=== PATIENT | female | born 1970 | race Caucasian/White ===

== ENCOUNTER 2023-04-14 19:34 | Inpatient (IN) | payer SELFPAY ==
[~2023-04-14] VITALS: Ht 167.6 cm; Wt 59.0 kg
--- NOTE | 2023-04-14 20:08 | NUR ---
Patient placed in room 4A
--- NOTE | 2023-04-14 20:10 | NUR ---
Dr. Manley evaluated patient at bedside. MSE in progress.
[2023-04-14 20:52] LABS: HEMATOCRIT 31.3 % (31.2-41.9); MEAN CORPUSCULAR HEMOGLOBIN 30.2 uug (24.7-32.8); MEAN CORPUSCULAR VOLUME 91.8 fL (75.5-95.3); PLATELET COUNT (AUTO) 199 K/uL (179-408)
--- NOTE | 2023-04-14 20:58 | NUR ---
Ultrasound at bedside
[2023-04-14 21:00] LABS: CARBON DIOXIDE 22 mmol/L (21-32); CHLORIDE 98 mmol/L (98-107); GLUCOSE 97 mg/dL (74-106); POTASSIUM 2.9 mmol/L (3.5-5.1); UREA NITROGEN, BLOOD 7 mg/dL (7-18)
--- NOTE | 2023-04-14 21:12 | NUR ---
Patient signed conset for CT abd/pelvis w/ contrast.
[2023-04-14 21:15] LABS: ALANINE AMINOTRANSFERASE 31 U/L (14-59); ALKALINE PHOSPHATASE 423 U/L (50-136); ASPARTATE AMINOTRANSFERASE 197 U/L (15-37); BILIRUBIN,DIRECT 9.3 mg/dL (0.0-0.2); BILIRUBIN,TOTAL 10.7 mg/dL (0.2-1.0); LIPASE 181 U/L (73-393); TOTAL PROTEIN, SERUM 6.4 g/dL (6.4-8.2)
[2023-04-14] MEDS ORDERED: POTASSIUM BICARBONATE/CIT AC 25 MEQ TABLET.EFF PO ONE (21:15)
--- NOTE | 2023-04-14 21:15 | NUR ---
UA sent to lab
[2023-04-14 21:31] LABS: *BLOOD, URINE 2+ (NEGATIVE); *COLOR,URINE YELLOW (YELLOW); *KETONES,URINE TRACE (NEGATIVE); LEUKOCYTE ESTERASE ,URINE 3+ (NEGATIVE); NITRITE, URINE NEGATIVE (NEGATIVE); UGLUCOSE NEGATIVE (NEGATIVE)
[2023-04-14 21:34] LABS: *BILIRUBIN,URIN 3+ (NEGATIVE); *CLARITY,URINE CLOUDY (CLEAR)
[2023-04-14] MEDS ORDERED: POTASSIUM BICARBONATE/CIT AC 25 MEQ TABLET.EFF ONE (21:34)
[2023-04-14] MEDS ORDERED: IOHEXOL 300MG/ML 100 ML INFUS..BTL ONE (21:49)
[2023-04-14] MEDS ORDERED: SWABABLE VALVE TRANSFER SET EA MC ONE (21:50)
[2023-04-14] MEDS ORDERED: IV NORMAL SALINE 250 ML IV ONE (21:50)
[2023-04-14 22:01] LABS: WBC,URINE 80-100 /HPF (0-3)
[2023-04-14 22:02] LABS: BACTERIA,URINE FEW /HPF (NONE SEEN); SQUAMOUS EPITHELIAL CELL,UR MODERATE /HPF (NONE SEEN)
[2023-04-14 22:04] LABS: BAND % (MANUAL) 4 % (0-10); LYMPHOCYTES % (MANUAL) 8 % (20-40); MONOCYTES % (MANUAL) 2 % (2-10); NEUTROPHILS % (MANUAL) 86 % (42-75)
--- NOTE | 2023-04-14 22:04 | NUR ---
Patient taken to CT via gurraghu accompanied by
[2023-04-14 22:15] LABS: IRON, SERUM 69 ug/dL (50-175)
[2023-04-14 22:27] LABS: FERRITIN 1258 ng/mL (8-252)
--- NOTE | 2023-04-14 22:38 | NUR ---
Patient voided small amount of concentrated urine.
--- NOTE | 2023-04-14 22:45 | NUR ---
Per Dr. Manley, patient requires higher level of care.
--- NOTE | 2023-04-14 22:50 | NUR ---
Called [facility], no answer. Left a voicemail. Waiting for call back.
--- NOTE | 2023-04-14 23:12 | NUR ---
Faxed clinical data to [facility] .
--- NOTE | 2023-04-15 00:05 | NUR ---
Per [facility] transfer data, still reviewing clinical data. Possible transfer in the morning.
--- NOTE | 2023-04-15 00:58 | NUR ---
Called [facility] for panel call. Ramin Larson PACK OPERATOR system administration manager waiting for call back.
--- NOTE | 2023-04-15 00:58 | NUR ---
Called Pantograph Setter Reed MERAZ for bed, was told patient will stay in ER until a MS bed is available.
[2023-04-15] MEDS ORDERED: CHOLECALCIFEROL 1,000 UNIT TABLET PO SCH (01:00)
--- NOTE | 2023-04-15 01:24 | NUR ---
Dr. Manley on panel call with Neo DEGROOT. Pending admisssion.
[2023-04-15] MEDS ORDERED: REMEDY ESSENTIAL ZINC PASTE 113 GM TP PRN (01:45)
[2023-04-15] MEDS ORDERED: MAGNESIUM HYDROXIDE 30 ML LIQUID UDC PO PRN (01:45)
[2023-04-15] MEDS ORDERED: CEFTRIAXONE 1 G in IV DEXTROSE 5% 50 ML IV SCH (01:45)
--- NOTE | 2023-04-15 01:50 | NUR ---
Patient requesting sleeping aid. Dr. Manley notified. Melatonin 3mg PO ordered.
[2023-04-15] MEDS ORDERED: MELATONIN 3 MG TABLET ONE (01:54)
[2023-04-15] MEDS ORDERED: CHOLECALCIFEROL 1,000 UNIT TABLET ONE (01:54)
[2023-04-15] MEDS ORDERED: MAGNESIUM HYDROXIDE 30 ML LIQUID UDC PO ONE (02:00)
[2023-04-15] MEDS ORDERED: MELATONIN 3 MG TABLET PO SCH (02:00)
--- NOTE | 2023-04-15 03:00 | NUR ---
Patient sleeping and resting comfortably in bed. No signs of distress noted.
[2023-04-15] MEDS ORDERED: CEFTRIAXONE /D5W 50ML IVPB **ER PYXIS IV ONE (03:06)
--- NOTE | 2023-04-15 06:01 | NUR ---
Urine sample sent to lab
--- NOTE | 2023-04-15 06:20 | NUR ---
Patient signed transfer consent form.
[2023-04-15 06:47] LABS: HEMATOCRIT 25.3 % (31.2-41.9); MEAN CORPUSCULAR HEMOGLOBIN 31.2 uug (24.7-32.8); MEAN CORPUSCULAR VOLUME 91.2 fL (75.5-95.3); PLATELET COUNT (AUTO) 152 K/uL (179-408)
--- NOTE | 2023-04-15 06:49 | NUR ---
Spoke to [facility] transfer center, per [facility] patient has been accepted by Dr. Rosalina Hidalgo. Currently waiting on financial clearance and back transfer agreement.
[2023-04-15 06:51] LABS: *AMPHETAMINE, URINE NEGATIVE (NEGATIVE); *CANNABINOID, URINE NEGATIVE (NEGATIVE); *COCCAINE, URINE NEGATIVE (NEGATIVE); *PHENCYCLIDINE SCREEN,URINE NEGATIVE (NEGATIVE)
[2023-04-15] MEDS ORDERED: PANTOPRAZOLE SODIUM 40 MG TABLET.DR PO ONE (06:57)
[2023-04-15] MEDS: PANTOPRAZOLE SODIUM 40 MG TABLET.DR PO SCH (06:58)
--- NOTE | 2023-04-15 07:07 | NUR ---
Spoke to [facility] transfer center, per [facility] she's no longer being accepted due to patient being self-pay.
--- NOTE | 2023-04-15 07:17 | NUR ---
Assumed care of Pt at this time. Pt is awake A/O x4 and is not any distress.
[2023-04-15 07:27] LABS: BILIRUBIN,TOTAL 9.6 mg/dL (0.2-1.0); CREATININE 0.8 mg/dL (0.6-1.3); MAGNESIUM 1.9 mg/dL (1.8-2.4); PHOSPHOROUS 2.1 mg/dL (2.5-4.9); POTASSIUM 3.6 mmol/L (3.5-5.1); TOTAL PROTEIN, SERUM 5.5 g/dL (6.4-8.2)
[2023-04-15 08:08] LABS: ACETAMINOPHEN < 10.0 ug/mL (10-30)
--- NOTE | 2023-04-15 09:05 | NUR ---
Pt cc of nerve pain/tingling of Upper/lower ext, C Aretha notified, awaiting call back.
[2023-04-15] MEDS ORDERED: LORAZEPAM 2 MG/1 ML VIAL ONE (10:44)
[2023-04-15 10:46] LABS: BAND % (MANUAL) 4 % (0-10); LYMPHOCYTES % (MANUAL) 3 % (20-40); MONOCYTES % (MANUAL) 4 % (2-10); NEUTROPHILS % (MANUAL) 89 % (42-75)
[2023-04-15] MEDS: LORAZEPAM 2 MG/1 ML VIAL IV PRN (10:50)
--- NOTE | 2023-04-15 12:20 | NUR ---
Pt ate lunch tray w/ moderate appetite. Pt states decreased tinglin/pain of Ext.
--- NOTE | 2023-04-15 13:35 | NUR ---
Patient is resting comfortably in bed with eyes closed, NAD noted.
[2023-04-15] MEDS ORDERED: NEUTRA PHOS PACKET PO ONE (17:00)
--- NOTE | 2023-04-15 18:45 | NUR ---
Room 229B assigned by nursing supervisor feed mill.
--- NOTE | 2023-04-15 19:15 | NUR ---
Received report from Devorah MERAZ.
--- NOTE | 2023-04-15 20:01 | NUR ---
called 3rd floor for bed, spoke with Sonia MERAZ. Patient assigned to M/S room 329A
--- NOTE | 2023-04-15 20:56 | NUR ---
Called third floor and gave report to Sonia MERAZ.
--- NOTE | 2023-04-15 21:56 | NUR ---
Transferred patient upstairs, KT vega made aware of patient's arrival.
--- NOTE | 2023-04-15 22:00 | NUR ---
Received patient from ER via gurney, alert and oriented x4, dx: Jaundice. In no acute distress. IV access to LAC intact and patent. Abdomen is soft and slightly distended. Routine admission care rendered, oriented to room/TV/BR and call light. NPO except meds. Care plan initiated. Needs attended.
[2023-04-15] MEDS ORDERED: CEFEPIME HCL 1 G VIAL ONE (22:12)
[2023-04-15 22:14] VITALS: BP 121/74
[2023-04-15] MEDS: CEFEPIME HCL 1 G in IV DEXTROSE 5% 50 ML IV SCH (22:36)
[2023-04-15] MEDS ORDERED: IV DEXTROSE 5%-0.9%NS+20MeqKCL 1,000 ML IV ONE (22:58)
[2023-04-15] MEDS: VANCOMYCIN IV 1,250 MG in IV DEXTROSE 5% 250 ML IV ONE ×2 (23:06→23:48)
[2023-04-15] MEDS: POTASSIUM CHLORIDE 20 MEQ in IV D5/ 0.9% NACL 1,000 ML IV PRN (23:08)
[2023-04-16] MEDS ORDERED: VANCOMYCIN HCL 500 MG VIAL ONE (02:12)
[2023-04-16] MEDS ORDERED: CEFTRIAXONE 1 G in IV DEXTROSE 5% 50 ML IV SCH (03:00)
[2023-04-16 04:39] VITALS: BP 126/79
[2023-04-16] MEDS: CEFEPIME HCL 1 G in IV DEXTROSE 5% 50 ML IV SCH ×3 (06:01→23:21)
[2023-04-16] MEDS: PANTOPRAZOLE SODIUM 40 MG TABLET.DR PO SCH (06:19)
[2023-04-16 07:46] LABS: BILIRUBIN,TOTAL 10.1 mg/dL (0.2-1.0); CREATININE 0.8 mg/dL (0.6-1.3); MAGNESIUM 1.7 mg/dL (1.8-2.4); PHOSPHOROUS 2.8 mg/dL (2.5-4.9); POTASSIUM 3.6 mmol/L (3.5-5.1); TOTAL PROTEIN, SERUM 5.6 g/dL (6.4-8.2)
[2023-04-16 08:07] LABS: HEMATOCRIT 29.9 % (31.2-41.9); MEAN CORPUSCULAR HEMOGLOBIN 30.5 uug (24.7-32.8); MEAN CORPUSCULAR VOLUME 95.4 fL (75.5-95.3); PLATELET COUNT (AUTO) 64 K/uL (179-408)
[2023-04-16] MEDS: MAGNESIUM SULFATE/D5W 100 ML IV SCH ×2 (09:50→10:15)
[2023-04-16 11:47] VITALS: BP 119/77
[2023-04-16 12:07] LABS: HEPATITIS A AB, IgM Negative (Negative)
--- NOTE | 2023-04-16 12:40 | NUR ---
WOUND CARE CONSULT: PT PRESENTS WITH LEFT GREAT TOENAIL LOOSENED WITH TENDERNESS AND LONG TOENAILS, PRESENT ON ADMISSION. DR EMERSON CALLED FOR DPM CONSULT. IN AGREEMENT WITH PLAN OF CARE.
[2023-04-16] MEDS: VANCOMYCIN IV 1,000 MG in IV DEXTROSE 5% 250 ML IV SCH (14:13)
--- NOTE | 2023-04-16 15:07 | NUR ---
AM NOTE: RECEIVED REPORT FROM AM NURSE NOLA PATIENT IS ALERT AND ORIENTED X4 SKIN IS JAUNDICE AND CHECKED LT BIG TOE WILL DRESS THE AREA. DR MENDOZA ORDERED FOR PATIENT CLEAR LIQUID DIET CHECKED PATIENT SHE IS SLEEPING NO SIGNS OF DISTRESS NOTED. MEDICATION GIVEN ORDERED NO SIGNS OF ADVERSE REACTION NOTED. FROM MEDICATION WILL CONTINUE TO MONITOR FOR FALLS AND SAFETY.
[2023-04-16] MEDS: MORPHINE SULFATE 2 MG/1 ML DISP.SYRIN IV PRN (15:52)
[2023-04-16] MEDS: POTASSIUM CHLORIDE 20 MEQ in IV D5/ 0.9% NACL 1,000 ML IV PRN (15:53)
[2023-04-16 16:00] VITALS: BP 138/90
[2023-04-16] MEDS: METRONIDAZOLE 500 MG/NS 100ML 500 MG in PREMIXED 1 EACH IV SCH ×2 (17:30→22:00)
[2023-04-16 18:07] LABS: NEUTROPHILS % (MANUAL) 90 % (42-75)
[2023-04-16 18:08] LABS: BASOPHILS % (MANUAL) 0 % (0-2); EOSINOPHILS % (MANUAL) 0 % (0-8); LYMPHOCYTES % (MANUAL) 7 % (20-40); MONOCYTES % (MANUAL) 3 % (2-10)
[2023-04-16 21:41] VITALS: BP 142/80
[2023-04-17 03:43] VITALS: BP 124/74
[2023-04-17] MEDS: CEFEPIME HCL 1 G in IV DEXTROSE 5% 50 ML IV SCH ×3 (05:16→22:24)
[2023-04-17] MEDS: METRONIDAZOLE 500 MG/NS 100ML 500 MG in PREMIXED 1 EACH IV SCH ×3 (05:44→22:43)
[2023-04-17] MEDS: PANTOPRAZOLE SODIUM 40 MG TABLET.DR PO SCH (06:10)
[2023-04-17] MEDS: MORPHINE SULFATE 2 MG/1 ML DISP.SYRIN IV PRN ×2 (06:11→20:41)
[2023-04-17] MEDS: VANCOMYCIN IV 1,000 MG in IV DEXTROSE 5% 250 ML IV SCH ×2 (07:03→23:55)
--- NOTE | 2023-04-17 07:30 | NUR ---
RECEIVED REPORT FROM NIGHT NURSES: 1) Patient received AOx4, no sign of distress, discomfort or pain observed. 2) Awaiting ID assessment. 3) Will treat patient accordingly.
--- NOTE | 2023-04-17 07:30 | NUR ---
NIGHT NURSE REPORT: 1) Received A0 x4 - asleep comfortably 2) No sign of distress, sob, pain or discomfort observed. 3) Will continue to assess, treat, and evaluate care accordingly.
--- NOTE | 2023-04-17 07:33 | NUR ---
Pt received in bed IV Infiltrated. New IV started on left wrist Pt on multiple antibiotics WBC remain elevated. Pt medicated with Morphine Sulfate IVP. Tolerate PO intake fine no n/v. Pt undrerstood to call for help if needed. Endorse care to incoming RN
[2023-04-17 08:22] LABS: HEMATOCRIT 26.3 % (31.2-41.9); MEAN CORPUSCULAR HEMOGLOBIN 30.9 uug (24.7-32.8); MEAN CORPUSCULAR VOLUME 93.3 fL (75.5-95.3); PLATELET COUNT (AUTO) 166 K/uL (179-408)
--- NOTE | 2023-04-17 09:00 | NUR ---
LAB - HIB INFLUENZA 1) Called MD/VOICE COACH left a message regarding blood draw HIB - Influenza - what test does the MD/VOICE COACH wants. 2) Awaiting response back.
[2023-04-17 09:17] LABS: BILIRUBIN,DIRECT 8.5 mg/dL (0.0-0.2); BILIRUBIN,TOTAL 10.2 mg/dL (0.2-1.0); CREATININE 0.8 mg/dL (0.6-1.3); MAGNESIUM 2.1 mg/dL (1.8-2.4); PHOSPHOROUS 2.7 mg/dL (2.5-4.9); POTASSIUM 3.4 mmol/L (3.5-5.1); TOTAL PROTEIN, SERUM 5.2 g/dL (6.4-8.2)
--- NOTE | 2023-04-17 09:48 | NUR ---
LAB WORK - TAKEN AT THE TIME OF THIS REPORT.
--- NOTE | 2023-04-17 09:57 | NUR ---
CRITICAL LAB: - left a message for MD/FURNITURE INSTALLER WBC 34.3 was trending down 04/16/2023 was 30.2
--- NOTE | 2023-04-17 11:02 | NUR ---
CARE ADMINISTERED REQUIRED.
[2023-04-17 11:35] VITALS: BP 120/77
--- NOTE | 2023-04-17 13:45 | NUR ---
NO CHANGE IN CONDITION - REMAINS CLINICALLY STABLE AND ASLEEP MOST OF THE TIME
[2023-04-17 16:00] VITALS: BP 125/72
[2023-04-17 16:54] LABS: NEUTROPHILS % (MANUAL) 61 % (42-75)
[2023-04-17 16:55] LABS: BAND % (MANUAL) 19 % (0-10); BASOPHILS % (MANUAL) 0 % (0-2); BLASTS, MANUAL % 0 % (0-0); EOSINOPHILS % (MANUAL) 2 % (0-8); LYMPHOCYTES % (MANUAL) 11 % (20-40); METAMYELOCYTES % 0 % (0-1); MONOCYTES % (MANUAL) 6 % (2-10); MYELOCYTES % 0 % (0-0); PROMYELOCYTES % 0 %; REACTIVE LYMPHOCYTES 0 % (0-0)
[2023-04-17] MEDS: POTASSIUM CHLORIDE 20 MEQ in IV D5/ 0.9% NACL 1,000 ML IV PRN (17:08)
--- NOTE | 2023-04-17 19:02 | NUR ---
1) WILL ENDORSED CARE TO NIGHT STAFF ACCORDINGLY. 2) NO CHANGE IN CONDITION, PATIENT CLINICALLY STABLE AT THE TIME OF THIS REPORT
[2023-04-17 21:00] VITALS: BP 124/82
[2023-04-18] MEDS: LORAZEPAM 2 MG/1 ML VIAL IV PRN (00:49)
[2023-04-18] MEDS: METRONIDAZOLE 500 MG/NS 100ML 500 MG in PREMIXED 1 EACH IV SCH ×3 (05:05→21:21)
[2023-04-18] MEDS: CEFEPIME HCL 1 G in IV DEXTROSE 5% 50 ML IV SCH ×3 (05:42→21:21)
[2023-04-18] MEDS: PANTOPRAZOLE SODIUM 40 MG TABLET.DR PO SCH (06:13)
[2023-04-18 06:36] VITALS: BP 134/86
[2023-04-18 07:00] LABS: HEMATOCRIT 25.6 % (31.2-41.9); MEAN CORPUSCULAR VOLUME 94.5 fL (75.5-95.3); PLATELET COUNT (AUTO) 184 K/uL (179-408)
[2023-04-18 07:20] LABS: MAGNESIUM 1.9 mg/dL (1.8-2.4); PHOSPHOROUS 2.3 mg/dL (2.5-4.9); POTASSIUM 3.6 mmol/L (3.5-5.1)
--- NOTE | 2023-04-18 07:30 | NUR ---
REPORT FROM NIGHT STAFF: 1) Patient received, awake, alert and no sign of SOB, or distress. 2) Will continue to assess, plan, implement, and evaluate care accordingly.
[2023-04-18] MEDS: MORPHINE SULFATE 2 MG/1 ML DISP.SYRIN IV PRN ×2 (08:21→15:50)
[2023-04-18] MEDS: POTASSIUM CHLORIDE 20 MEQ in IV D5/ 0.9% NACL 1,000 ML IV PRN (08:22)
[2023-04-18 11:41] VITALS: BP 135/88
--- NOTE | 2023-04-18 12:52 | NUR ---
BLOOD CULTURE RESULTS: 1) MD informed 2) No new orders because patient has been seen by ID team already.
[2023-04-18 15:12] VITALS: BP_SYST 117; BP_SYST 139; BP_DIAS 48; BP_DIAS 91
[2023-04-18] MEDS: VANCOMYCIN IV 1,000 MG in IV DEXTROSE 5% 250 ML IV SCH (15:13)
--- NOTE | 2023-04-18 15:14 | NUR ---
WOUND DRESSIN) Took off dressing to left big toe- no open wound. 2) Patient claims to have knocked the toe on the door. 3) Non adherent dressing applied for protection - no drainage. 4) No sign of infection or inflammation observed.
--- NOTE | 2023-04-18 15:15 | NUR ---
SEEN BY ID TEAM: 1) Patient may benefit from GI input. 2) Sent a message to MD regarding this info. 3) Await MD's response.
[2023-04-18] MEDS: ONDANSETRON 4 MG/2 ML VIAL IV PRN (15:29)
--- NOTE | 2023-04-18 15:52 | NUR ---
NUCLEAR MEDICINE GALL BLADDER STUDY: 1) Lyndsay [phone] called and plan is: (i) NPO from time of report (ii) No Morphine (iii) Consent for Surgery & Special procedures 2) NPO noticed placed on door - GAS PLANT SPECIALIST informed
[2023-04-18] MEDS ORDERED: NEUTRA PHOS PACKET PO ONE (16:00)
--- NOTE | 2023-04-18 18:20 | NUR ---
1) CONSENT SIGNED AND IN PATIENT'S FOLDER 2) Will endorse care to night staff accordingly
--- NOTE | 2023-04-18 21:37 | NUR ---
Patient scheduled for NM but IV infiltrated, currently waiting for PICC line nurse to place a midline. NM scheduled now to tomorrow morning. Patient requesting water, I will give water but she will be NPO after midnight. Patient is anxious and nervous about her current condition, comfort measures incorporated and calm reassurance given.
[2023-04-19 00:18] VITALS: BP 128/75
--- NOTE | 2023-04-19 02:36 | NUR ---
Midline in RUE placed by camacho Dupree Carol NM Tech informed so she could order the Isotopes in preparation for the procedure today. NPO being maintained.
[2023-04-19 05:12] VITALS: BP 128/75
[2023-04-19] MEDS: PANTOPRAZOLE SODIUM 40 MG TABLET.DR PO SCH (05:22)
[2023-04-19] MEDS: CEFEPIME HCL 1 G in IV DEXTROSE 5% 50 ML IV SCH ×2 (05:31→14:42)
[2023-04-19] MEDS: METRONIDAZOLE 500 MG/NS 100ML 500 MG in PREMIXED 1 EACH IV SCH ×2 (05:31→14:42)
[2023-04-19] MEDS: POTASSIUM CHLORIDE 20 MEQ in IV D5/ 0.9% NACL 1,000 ML IV PRN (06:29)
--- NOTE | 2023-04-19 07:30 | NUR ---
NIGHT NURSE REPORT: 1) Received patient AOx4, lying in be watching tv. 2) No sign of distress, pain, discomfort or SOB observed. 3) Patient on RA. 4) Due Nuclear Medicine Gall bladder Study this morning as iv access was an issue yesterday 5) Will continue to monitor, assess, plan, and implement care accordingly.
--- NOTE | 2023-04-19 08:00 | NUR ---
NUCLEAR MEDICINE GALL BLADDER STUDY: 1) Patient left for the study. 2) Patient was clinically stable, no sign of distress, SOB, pain observed on transfer.
[2023-04-19 09:12] LABS: POTASSIUM 3.5 mmol/L (3.5-5.1)
--- NOTE | 2023-04-19 11:15 | NUR ---
RETURN FROM NUCLEAR MEDICINE - CLINICALLY STABLE
[2023-04-19 12:02] VITALS: BP 122/80
--- NOTE | 2023-04-19 12:37 | NUR ---
EATING & DRINKING - OFFERED LIQUID DIET ON RETURN
--- NOTE | 2023-04-19 14:18 | NUR ---
SAFETY: C/o of itchiness all over - MD informed
[2023-04-19] MEDS ORDERED: diphenhydrAMINE 25 MG/10 ML UDC PO PRN (14:30)
[2023-04-19] MEDS: diphenhydrAMINE 25 MG CAP PO PRN ×2 (14:50→22:53)
--- NOTE | 2023-04-19 14:52 | NUR ---
SAFETY: 1) MD prescribed Benadryl Capsule PO. 2) Administered and awaiting effect.
[2023-04-19 15:06] VITALS: BP 116/78
[2023-04-19] MEDS ORDERED: SODIUM PHOSPHATE MM 15 MMOL in IV NORMAL SALINE 250 ML IV ONE (15:30)
--- NOTE | 2023-04-19 15:55 | NUR ---
CHECKED ON PATIENT AND CLINICALLY STABLE AND ASLEEP
[2023-04-19] MEDS: MEROPENEM 1 G in IV NORMAL SALINE 100 ML IV SCH (21:00)
[2023-04-19] MEDS: ACYCLOVIR IV 500 MG in IV DEXTROSE 5% 100 ML IV SCH (22:47)
[2023-04-20] MEDS: MORPHINE SULFATE 2 MG/1 ML DISP.SYRIN IV PRN ×3 (02:54→21:18)
--- NOTE | 2023-04-20 03:34 | NUR ---
Received the patient at start of shift resting in bed, no acute distress noted, breathing easy unlabored on room air. No acute distress noted. Currently patient able to give stool specimen, which has been sent to the lab, she also c/o abdominal pain she was given Morphine 1mg IV, which was effective.
[2023-04-20] MEDS: ACYCLOVIR IV 500 MG in IV DEXTROSE 5% 100 ML IV SCH ×3 (04:34→21:16)
[2023-04-20] MEDS: MEROPENEM 1 G in IV NORMAL SALINE 100 ML IV SCH ×3 (04:34→21:16)
[2023-04-20] MEDS: PANTOPRAZOLE SODIUM 40 MG TABLET.DR PO SCH (05:53)
[2023-04-20 05:56] LABS: HEMATOCRIT 27.6 % (31.2-41.9); MEAN CORPUSCULAR HEMOGLOBIN 31.5 uug (24.7-32.8); MEAN CORPUSCULAR VOLUME 95.9 fL (75.5-95.3); PLATELET COUNT (AUTO) 215 K/uL (179-408)
[2023-04-20 06:07] LABS: CREATININE 0.9 mg/dL (0.6-1.3); POTASSIUM 3.5 mmol/L (3.5-5.1)
[2023-04-20 06:41] LABS: BILIRUBIN,DIRECT 8.7 mg/dL (0.0-0.2); BILIRUBIN,TOTAL 10.1 mg/dL (0.2-1.0); TOTAL PROTEIN, SERUM 5.1 g/dL (6.4-8.2)
[2023-04-20 06:59] LABS: *RHEUMATOID FACTOR SCREEN NEGATIVE (NEGATIVE)
[2023-04-20 07:03] LABS: THYROID STIMULATING HORMONE 11.099 mIU/mL (0.358-3.740)
[2023-04-20 07:20] VITALS: BP 138/83
--- NOTE | 2023-04-20 07:30 | NUR ---
NIGHT NURSE REPORT: 1) Pt received lying in bed comfortably. 2) No sign of SOB, labored breathing, or cyanosis - on RA 3) No sign of pain, distress observed. 4) Will continue to asses, plan, and implement care accordingly
--- NOTE | 2023-04-20 08:30 | NUR ---
[facility] THIS MORNIN) Patient to be NPO from now - no breakfast. 2) Consent will be sign by the department technicians after explaining the procedure 3) Patient informed - water taken away
--- NOTE | 2023-04-20 09:43 | NUR ---
PT EVALUATION: 1) RN assisted PT to evaluate - patient did not want to come out of bed or mobilize - asking for it to be done tomorrow. 2) Patient complaining that she has numbness in her feet and pain in her arm pits making it difficult to assist. Stood up for less than 3 minutes and asked for bed smith. 3) Patient was put back to bed and bed smith provided - passed dark yellow urine.
--- NOTE | 2023-04-20 09:48 | NUR ---
EATING & DRINKING: FIRE ENGINEER ordered advance diet as tolerated.
--- NOTE | 2023-04-20 09:49 | NUR ---
PAIN MANAGEMENT - OFFERED PAIN MEDS - REFUSED.
--- NOTE | 2023-04-20 11:02 | NUR ---
LEFT FOR [facility] - AT [facility] - CLINICALLY STABLE
[2023-04-20 11:28] LABS: BAND % (MANUAL) 4 % (0-10); BASOPHILS % (MANUAL) 0 % (0-2); BLASTS, MANUAL % 0 % (0-0); EOSINOPHILS % (MANUAL) 0 % (0-8); LYMPHOCYTES % (MANUAL) 12 % (20-40); METAMYELOCYTES % 0 % (0-1); MONOCYTES % (MANUAL) 8 % (2-10); MYELOCYTES % 0 % (0-0); NEUTROPHILS % (MANUAL) 74 % (42-75); PROMYELOCYTES % 0 %; REACTIVE LYMPHOCYTES 2 % (0-0)
--- NOTE | 2023-04-20 13:45 | NUR ---
RETURNED FROM [facility] ([facility] [place] [place]) - CLINICALLY STABLE.
--- NOTE | 2023-04-20 14:07 | NUR ---
1) PAIN MANAGEMENT - PAIN MED ADMINISTERED PRESCRIBED AND AWAIT EFFECT. 2) IV ATB ADMINISTERED PRESCRIBED - A LITTLE BEHIND BECAUSE OF BEING OFF THE UNIT
--- NOTE | 2023-04-20 18:56 | NUR ---
LARRIMAN HELPER ENDORSEMENT - WILL ENDORSE CARE TO NIGHT STAFF ACCORDINGLY.
[2023-04-20 20:00] VITALS: BP 125/68
[2023-04-21] MEDS: MEROPENEM 1 G in IV NORMAL SALINE 100 ML IV SCH ×3 (05:14→21:00)
[2023-04-21 05:41] VITALS: BP 149/98
[2023-04-21] MEDS: ACYCLOVIR IV 500 MG in IV DEXTROSE 5% 100 ML IV SCH ×3 (06:27→22:00)
[2023-04-21] MEDS: PANTOPRAZOLE SODIUM 40 MG TABLET.DR PO SCH (06:27)
[2023-04-21 07:06] LABS: *IMMUNOGLOBULIN G, SERUM 1404 mg/dL (586-1602); IMMUNOGLOBULIN M, SERUM 88 mg/dL (26-217)
--- NOTE | 2023-04-21 10:00 | NUR ---
RCVD PT IN BED RESTING. AOOX4. NO SOB OR ANY DISTRESS. IV MIDLINE RUNNING 80ML/HR OF D5 WITH K 20MEQ. STILL URINATING CLOUDY-DARK URINE. PT COMPLIANT WITH CLEAR LIQUIDS DIET.
[2023-04-21 11:36] VITALS: BP 139/85
[2023-04-21 16:08] VITALS: BP 134/88
--- NOTE | 2023-04-21 17:39 | NUR ---
PT V/S WNL. IV MIDLINE INTACT AND PATENT RUNNING 80CC/HR OF D5 KCL 20 MEQ. URINATING CLOUDY-DARK URINE. SEEN BY DARON DEGROOT. LAB WORKS ORDERED. PT COMPLIANT WITH CLEAR LIQUIDS DIET.
[2023-04-21] MEDS: POTASSIUM CHLORIDE 20 MEQ in IV D5/ 0.9% NACL 1,000 ML IV PRN (20:34)
[2023-04-22] MEDS: LORAZEPAM 2 MG/1 ML VIAL IV PRN ×3 (00:46→22:11)
[2023-04-22 02:47] VITALS: BP 152/99
[2023-04-22] MEDS: MEROPENEM 1 G in IV NORMAL SALINE 100 ML IV SCH ×3 (05:00→20:11)
[2023-04-22 05:03] VITALS: BP 129/86
[2023-04-22] MEDS: ACYCLOVIR IV 500 MG in IV DEXTROSE 5% 100 ML IV SCH ×3 (06:27→21:52)
[2023-04-22] MEDS: PANTOPRAZOLE SODIUM 40 MG TABLET.DR PO SCH (06:27)
--- NOTE | 2023-04-22 06:59 | NUR ---
Patient extremely anxious during the night, despite receiving ativan. She continuously request morphine, demanding and constantly pushing call light the entire night, she slept a total of 2 hours but cat napping. Patient's daughter and request to speak with doctor, she will in am form Margaret.
[2023-04-22 07:14] LABS: MEAN CORPUSCULAR VOLUME 99.4 fL (75.5-95.3)
[2023-04-22 07:41] LABS: CREATININE 1.1 mg/dL (0.6-1.3); MAGNESIUM 1.9 mg/dL (1.8-2.4); PHOSPHOROUS 1.9 mg/dL (2.5-4.9); POTASSIUM 3.7 mmol/L (3.5-5.1)
[2023-04-22 08:04] LABS: HEMATOCRIT 29.7 % (31.2-41.9); MEAN CORPUSCULAR HEMOGLOBIN 31.3 uug (24.7-32.8); PLATELET COUNT (AUTO) 276 K/uL (179-408)
[2023-04-22 10:06] LABS: *ANTI-SCLERODERMA-70 AB <0.2 AI (0.0-0.9); *SJOGREN'S ANTI-SS-A <0.2 AI (0.0-0.9); *SJOGREN'S ANTI-SS-B <0.2 AI (0.0-0.9); *SMITH ANTIBODIES <0.2 AI (0.0-0.9); ANTI-DNA(DS) AB, QN <1 IU/mL (0-9)
[2023-04-22 10:50] LABS: LYMPHOCYTES % (MANUAL) 3 % (20-40); MONOCYTES % (MANUAL) 1 % (2-10); NEUTROPHILS % (MANUAL) 96 % (42-75)
[2023-04-22] MEDS: MORPHINE SULFATE 2 MG/1 ML DISP.SYRIN IV PRN ×2 (10:53→20:11)
[2023-04-22 11:44] VITALS: BP 148/97
[2023-04-22 12:06] LABS: A/G RATIO 0.5 (0.7-1.7); ALBUMIN 1.5 g/dL (2.9-4.4); ALPHA-1-GLOBULIN 0.3 g/dL (0.0-0.4); ALPHA-2-GLOBULIN 0.6 g/dL (0.4-1.0); BETA GLOBULIN 1.1 g/dL (0.7-1.3); GAMMA GLOBULIN 1.2 g/dL (0.4-1.8); GLOBULIN, TOTAL 3.2 g/dL (2.2-3.9); M-SPIKE Not Observed g/dL (Not Observed)
[2023-04-22 16:37] VITALS: BP 151/95
[2023-04-22] MEDS ORDERED: NEUTRA PHOS PACKET PO ONE ×2 (17:30→22:00)
--- NOTE | 2023-04-22 20:38 | NUR ---
Pt AOx2-3, presenting with intermittent confusion. She refused PT today. Tolerating CLD. Hgb 34.2 today, trending down, MD aware. Flow cytometry ordered by Dr. Mccain. Per Dr Steele, the lab was never collected. Informed the lab and they could not see the order on their end. Lab test was reordered and made aware that it is a send out lab. New medication, Neutra Phos, ordered but unable to give during shift d/t needing to help one pt with blood transfusion and needing to help another patient with stool incontinence and IV occlusion. Endorsed to shift mechanic RN to give med.
[2023-04-22 21:06] LABS: VARICELLA ZOSTER IgG 942 index (Immune >165)
[2023-04-22 21:06] LABS: *EBV AB VCA IGG 60.6 U/mL (0.0-17.9); *EBV AB VCA IGM <36.0 U/mL (0.0-35.9)
--- NOTE | 2023-04-22 21:30 | NUR ---
AOX1. Neutra Phos given as endorsed by day shift RN. At 1999, Pt complained of pain on abdomen. Morphine given as ordered. At 0, pt was anxious. Ativan given as ordered. Slept comfortably through out the night. All needs attended. Call light within reach. Safety precaution maintained. Addendum: 04/23/23 at 0449 by HARMONY HENDERSON RN Incorrect time. Documentation for 04/23/23 3489
[2023-04-22] MEDS: POTASSIUM CHLORIDE 20 MEQ in IV D5/ 0.9% NACL 1,000 ML IV PRN (22:11)
[2023-04-22] MEDS ORDERED: IV DEXTROSE 5%-0.9%NS+20MeqKCL 1,000 ML IV ONE (23:03)
[2023-04-23 02:06] LABS: CMV, IgG >10.00 U/mL (0.00-0.59)
[2023-04-23 04:00] VITALS: BP 156/82
[2023-04-23] MEDS: MEROPENEM 1 G in IV NORMAL SALINE 100 ML IV SCH ×3 (04:01→21:55)
[2023-04-23] MEDS: ACYCLOVIR IV 500 MG in IV DEXTROSE 5% 100 ML IV SCH ×3 (05:03→21:57)
[2023-04-23] MEDS: LORAZEPAM 2 MG/1 ML VIAL IV PRN ×2 (05:38→23:17)
[2023-04-23] MEDS: PANTOPRAZOLE SODIUM 40 MG TABLET.DR PO SCH (06:07)
[2023-04-23 07:01] LABS: HEMATOCRIT 27.5 % (31.2-41.9); MEAN CORPUSCULAR HEMOGLOBIN 31.8 uug (24.7-32.8); MEAN CORPUSCULAR VOLUME 99.2 fL (75.5-95.3); PLATELET COUNT (AUTO) 255 K/uL (179-408)
[2023-04-23 07:10] LABS: MAGNESIUM 1.8 mg/dL (1.8-2.4); POTASSIUM 4.3 mmol/L (3.5-5.1)
[2023-04-23 08:06] LABS: IMMUNOGLOBULIN M, SERUM 88 mg/dL (26-217)
[2023-04-23 11:48] VITALS: BP 153/102
[2023-04-23] MEDS: POTASSIUM CHLORIDE 20 MEQ in IV D5/ 0.9% NACL 1,000 ML IV PRN (14:08)
[2023-04-23 15:45] VITALS: BP 142/100
[2023-04-23] MEDS ORDERED: NEUTRA PHOS PACKET PO ONE (16:00)
--- NOTE | 2023-04-23 17:00 | NUR ---
Patient has elevated blood pressure of 153/102 recheck 142/100 then 197/95 with heart rates as follow: 112, [address] Ribera notified with order for propranolol 10mg PO [id number].
[2023-04-23] MEDS: PROPRANOLOL HCL 10 MG TABLET PO SCH ×2 (18:39→21:00)
[2023-04-23 20:00] VITALS: BP 147/99
[2023-04-23] MEDS: MORPHINE SULFATE 2 MG/1 ML DISP.SYRIN IV PRN (23:17)
[2023-04-24] MEDS: POTASSIUM CHLORIDE 20 MEQ in IV D5/ 0.9% NACL 1,000 ML IV PRN ×2 (03:12→17:13)
[2023-04-24 04:00] VITALS: BP 141/80
[2023-04-24] MEDS: MEROPENEM 1 G in IV NORMAL SALINE 100 ML IV SCH ×3 (05:04→20:24)
[2023-04-24] MEDS: ACYCLOVIR IV 500 MG in IV DEXTROSE 5% 100 ML IV SCH ×3 (05:15→21:27)
[2023-04-24] MEDS: PANTOPRAZOLE SODIUM 40 MG TABLET.DR PO SCH (06:12)
[2023-04-24] MEDS: MORPHINE SULFATE 2 MG/1 ML DISP.SYRIN IV PRN ×2 (06:45→22:24)
[2023-04-24 07:31] LABS: MEAN CORPUSCULAR HEMOGLOBIN 32.7 uug (24.7-32.8); MEAN CORPUSCULAR VOLUME 101.3 fL (75.5-95.3); PLATELET COUNT (AUTO) 277 K/uL (179-408)
[2023-04-24] MEDS: PROPRANOLOL HCL 10 MG TABLET PO SCH ×2 (08:27→20:25)
[2023-04-24 10:43] LABS: BILIRUBIN,DIRECT 5.8 mg/dL (0.0-0.2); BILIRUBIN,TOTAL 6.7 mg/dL (0.2-1.0); CREATININE 0.8 mg/dL (0.6-1.3); MAGNESIUM 1.9 mg/dL (1.8-2.4); PHOSPHOROUS 2.8 mg/dL (2.5-4.9); TOTAL PROTEIN, SERUM 5.8 g/dL (6.4-8.2)
--- NOTE | 2023-04-24 11:31 | NUR ---
Received a call at 1110 from lab (Darren) and reported critical lab value of Albumin 1.0 Dr. brooks was notified.
[2023-04-24 12:00] VITALS: BP 142/91
[2023-04-24] MEDS: PROTEIN SUPPLEMENT (PROSTAT) 30 ML LIQUID PO SCH ×2 (12:05→17:17)
[2023-04-24 15:54] VITALS: BP 149/100
--- NOTE | 2023-04-24 16:17 | NUR ---
Paracentesis done and 1460 L fluid removed. Removed Fluid dropped off at the Lab. Pt. has been stable. Will keep monitoring the patient.
[2023-04-24] MEDS: LORAZEPAM 2 MG/1 ML VIAL IV PRN ×2 (16:18→22:24)
--- NOTE | 2023-04-24 17:37 | NUR ---
Pt. has been stable during the shift. Kept the pt. clean and dry. No c/o pain. Call light within reach. Repositioned every 2 hours and as needed. Compliance with the care given. Bedbound. Able to make the need known. Will keep monitoring the patient.
--- NOTE | 2023-04-24 18:48 | NUR ---
Urine sample collected and dropped off at the lab.
[2023-04-24 19:17] LABS: *BLOOD, URINE NEGATIVE (NEGATIVE); *CLARITY,URINE CLEAR (CLEAR); *KETONES,URINE TRACE (NEGATIVE); *UROBILINOGEN,URINE 0.2 E.U./dl (NORMAL); LEUKOCYTE ESTERASE ,URINE NEGATIVE (NEGATIVE); NITRITE, URINE NEGATIVE (NEGATIVE); UGLUCOSE NEGATIVE (NEGATIVE)
[2023-04-24 19:25] LABS: *BILIRUBIN,URIN 3+ (NEGATIVE)
[2023-04-24 19:26] LABS: *COLOR,URINE DARK YELLOW (YELLOW)
[2023-04-24 22:36] VITALS: BP 159/106
[2023-04-25] VITALS (10 sets, daily range): BP systolic 82–134; BP diastolic 44–84
[2023-04-25] MEDS: MEROPENEM 1 G in IV NORMAL SALINE 100 ML IV SCH ×3 (04:39→20:55)
[2023-04-25] MEDS: ACYCLOVIR IV 500 MG in IV DEXTROSE 5% 100 ML IV SCH ×3 (05:42→22:05)
[2023-04-25] MEDS: POTASSIUM CHLORIDE 20 MEQ in IV D5/ 0.9% NACL 1,000 ML IV PRN (06:05)
[2023-04-25] MEDS: PANTOPRAZOLE SODIUM 40 MG TABLET.DR PO SCH (06:11)
[2023-04-25 07:03] LABS: HEMATOCRIT 33.7 % (31.2-41.9); MEAN CORPUSCULAR HEMOGLOBIN 32.3 uug (24.7-32.8); PLATELET COUNT (AUTO) 316 K/uL (179-408)
[2023-04-25 07:25] LABS: BILIRUBIN,DIRECT 4.6 mg/dL (0.0-0.2); BILIRUBIN,TOTAL 5.3 mg/dL (0.2-1.0)
[2023-04-25 07:28] LABS: BILIRUBIN,DIRECT 4.5 mg/dL (0.0-0.2); BILIRUBIN,TOTAL 5.1 mg/dL (0.2-1.0); TOTAL PROTEIN, SERUM 5.6 g/dL (6.4-8.2)
--- NOTE | 2023-04-25 07:30 | NUR ---
REPORT FROM NIGHT NURSES: 1) Patient looked unwell, labored breathing, less responsive than normal. 2) Vitals within normal limits - and Sats in the high 90%. 3) Patient - AMS - not responding as normal. 4) Will inform MD re transfer patient for higher level of care
[2023-04-25] MEDS: PROTEIN SUPPLEMENT (PROSTAT) 30 ML LIQUID PO SCH ×3 (08:00→18:11)
--- NOTE | 2023-04-25 10:15 | NUR ---
PATIENT DETERIORATION: 1) Patient is moderate distress. 2) Patient has labored breathing. 3) MD boarding kennel or cattery operator reviewing patient - informed. 4) MD boarding kennel or cattery operator, and PCP on the uni also informed. 5) To transfer patient after blood gas results.
[2023-04-25] MEDS: PROPRANOLOL HCL 10 MG TABLET PO SCH ×2 (11:00→20:58)
[2023-04-25] MEDS: MORPHINE SULFATE 2 MG/1 ML DISP.SYRIN IV PRN (11:32)
[2023-04-25] MEDS: ONDANSETRON 4 MG/2 ML VIAL IV PRN (11:32)
[2023-04-25 12:43] LABS: ABG BASE EXCESS -9.7 mmol/L; ABG HCO3 17.8 mmol/L; ABG PCO2 46.1 mmHg (35.0-45.0); ABG PH 7.205 (7.350-7.450); ABG PO2 104.5 mmHg (75.0-100.0); ABG SITE RIGHT BRACHIAL; ABG TOTAL HEMOGLOBIN 10.4 G/dL (12.0-16.0); MetHb 0.4 % (0.0-1.5); O2Hb 96.3 % (94.0-97.0)
[2023-04-25 13:06] LABS: ANTI-MITOCHONDRIAL AB <20.0 Units (0.0-20.0)
--- NOTE | 2023-04-25 13:20 | NUR ---
DETERIORATION IN CONDITION: 1) Enquired with ALEXYS re: transfer of patient as patient is deteriorating. 2) ALEXYS stated that the CT Head results is required before patient can be transferred 3) Vitals checked once again, within normal limits
--- NOTE | 2023-04-25 13:55 | NUR ---
DETERIORATION: 1) Sent a message to MD - patient deteriorating again since last review. 2) ALEXYS informed of patient's condition. 3) Awaiting response
--- NOTE | 2023-04-25 14:02 | NUR ---
MD RESPONSE TO PATIENT DETERIORATION - RN INFORMED TO DO DOWN GRADE PATIENT
--- NOTE | 2023-04-25 14:40 | NUR ---
TRANSFER TO ICU: 1) Transferred to ICU 2) Patient breathing - labored 3) Vital remains stable - however Blood gas PH is high 4) Endorsed care to ICU nurse accordingly.
[2023-04-25] MEDS ORDERED: SODIUM BICARBONATE 8.4% 50 MEQ in IV D5 1/2 NS 1000 ML 1,000 ML IV PRN (14:45)
[2023-04-25] MEDS ORDERED: SODIUM BICARBONATE 8.4% 100 MEQ in IV D5 1/2 NS 1000 ML 1,000 ML IV PRN (15:30)
--- NOTE | 2023-04-25 15:34 | NUR ---
Received Pt from 3rd floor. Lying in bed, Pt drowsy, arousable and oriented x 2. ECG sinus rhythm, BP stable. Elevated RR 30's, with saturation > 95%. lung sounds coarse and clear. Skin cool and dry. 16 FR cisneros inserted. DENISE midline catheter intact with IVF running. Labs with metabolic acidosis. Dr Christiano jimenez recieved orders to start IVF with HCOS abdd to repeat ABG at 1700. Addendum: 04/25/23 at 1547 by JUMA POOLE RN Correction. Orders received from Dr. Ribera
[2023-04-25] MEDS ORDERED: ALBUMIN HUMAN 25% 50 ML IV ONE (17:00)
[2023-04-25 17:06] LABS: *HCV QUANT HCV Not Detected IU/mL (.)
--- NOTE | 2023-04-25 20:34 | NUR ---
ABG WAS DRAWN BY RT , ON 4L/M NC ,NEEDS HCO3, SAT 95%, REPORTED @ 20:20 TO ENVIRONMENT COORDINATOR NURSE Santana LYLES RCP Addendum: 04/25/23 at 2035 by STEPHANIE FRENCH Amended: Links added.
--- NOTE | 2023-04-25 22:35 | NUR ---
received ABG result and reported to DR Ribera with an order BIPAP.
[2023-04-26] VITALS: BP 107/54
[2023-04-26 02:00] VITALS: BP 118/70
[2023-04-26] MEDS ORDERED: MAGNESIUM SULFATE/D5W 100 ML ONE ×2 (04:46)
--- NOTE | 2023-04-26 05:00 | NUR ---
Decedent is in Room CCU-3 after a code Blue called at 0414 and ACLS with Code Blue Protocol was followed with the Help ER DR. Sousa and code ened at 0453. Internet Site Designer soledad, Dr. Bacilio Smith notify as ANNABELLEDONALDTatiana called at [phone] and spoke with Lou with case #[id number] and stated that Decedent is a Candidate and also [place] Sand Cutting Machine Operator called and spoke with Joaquín Munoz and stated that the Decedent is not a case. Decedent daughter Rola was notify in [facility] at [phone]. Addendum: 04/26/23 at 0838 by [facility] INPATIENT RN22 RN Daughter's Juan Manuel Bragg called at the daughter's request. Juan Manuel will be the point of contact for the family. Juan Manuel had Dr. Rocky Hull on the [address] conference call and informed me that Dr. Rocky Hull, telepnone will be the best contact number for communication with the family, since [place]. He authorizes Carin Hull to make decisions and be a second point of contact for the family. The family is requesting Dr. Bacilio Newman to call them. Family informed of nursing supervisor plastering's number [phone] to be the point of contact for the hospital. The washhouse worker can provide resources via email for [employer] in the area. Daughter called to get update and was able to view the body via Insights. Dr. Rocky Hull, telepnone - [email or web address] Juan Manuel Bragg - [email or web address]
[2023-04-26] MEDS ORDERED: EPINEPHRINE 1:10,000 1 MG/10 ML DISP.SYRIN ONE ×2 (05:03→05:25)
--- NOTE | 2023-04-26 09:56 | NUR ---
X-RAY TECH NOTIFIED OF PATIENT READY FOR HER CHEST X-RAY PER NURSE.
--- NOTE | 2023-04-26 11:27 | NUR ---
CORRECTING MY CHAU NOTE. NURSE MEANT PATIENT IN BED 4 NOT FOR PT. YARELI MA.
[2023-04-27 00:02] LABS: ABG BASE EXCESS -9.7 mmol/L; ABG HCO3 17.9 mmol/L; ABG PCO2 47.5 mmHg (35.0-45.0); ABG PH 7.195 (7.350-7.450); ABG PO2 100.6 mmHg (75.0-100.0); ABG SITE LEFT RADIAL; ABG TOTAL HEMOGLOBIN 9.2 G/dL (12.0-16.0); COHb 0.1 % (0.5-1.5); MetHb 0.3 % (0.0-1.5); O2Hb 96.1 % (94.0-97.0); VENT MODE Nasal Cannula
== END 2023-04-26 05:15 | DRG 871 ==
LOC: ER 19:45 → EDBD 04-15 02:34 → TRANSITION 04-15 02:34 → MEDSURG3 04-15 21:02 → MED 04-16 19:14 → MEDSURG3 04-20 17:52 → CCU 04-25 14:27
PROVIDERS: ADMIT Nurse Practitioner Family; ATTEND Internal Medicine
PROC: 0W9G3ZX Drainage of Peritoneal Cavity, Percutaneous Approach, Diagnostic (ICD-10-PCS; 2023-04-24)
PROC: 5A1935Z Respiratory Ventilation, Less than 24 Consecutive Hours (ICD-10-PCS; principal; 2023-04-26)
PROC: 0BH17EZ Insertion of Endotracheal Airway into Trachea, Via Natural or Artificial Opening (ICD-10-PCS; 2023-04-26)
PROC: 5A12012 Performance of Cardiac Output, Single, Manual (ICD-10-PCS; 2023-04-26)
DX: A41.89 Other specified sepsis (principal); E43 Unspecified severe protein-calorie malnutrition; G92.8 Other toxic encephalopathy; K83.1 Obstruction of bile duct; N39.0 Urinary tract infection, site not specified; R18.8 Other ascites; J90 Pleural effusion, not elsewhere classified; E87.6 Hypokalemia; E88.09 Other disorders of plasma-protein metabolism, not elsewhere classified; K74.69 Other cirrhosis of liver; E78.5 Hyperlipidemia, unspecified; Z98.84 Bariatric surgery status; D69.6 Thrombocytopenia, unspecified; D63.8 Anemia in other chronic diseases classified elsewhere; K75.81 Nonalcoholic steatohepatitis (NASH); K76.82 Hepatic encephalopathy; Z90.3 Acquired absence of stomach [part of]; K59.00 Constipation, unspecified; K74.60 Unspecified cirrhosis of liver; I10 Essential (primary) hypertension; Z20.822 Contact with and (suspected) exposure to COVID-19
CPT/HCPCS: 36415; 36600; 70030-TC; 70450; 71045; 74181; 78445; 82747; 82784; 83550; 83605; 83615; 83690; 83735; 83986; 84100; 84155; 84165; 84443; 84484; 85014; 85025; 85610; 85730; 86038; 86140; 86334; 86430; 86592; 86644; 86645; 86704; 86705; 86706; 86709; 86803; 87040; 87521; 87536; 87806; 88185; 89055; 92950; 93005; 93307; 94002; 94660; A4663; A6209; A9537; C1758; G0378; G0480; J0133; J0171; J0692; J0696; J2060; J2185; J2270; J2405; J3370; J3475; J3480; J3490; J7042; J7050; P9047; Q0163; Q9967